=== PATIENT | male | born 1960 | race Caucasian/White ===

== ENCOUNTER 2017-06-24 08:18 | Emergency (ER) | payer OTHER ==
[~2017-06-24] VITALS: Ht 177.8 cm; Wt 79.4 kg
--- NOTE | ~2017-06-24 | EKG ---
[place] [address] [facility] [place] [address] ELECTROCARDIOGRAM REPORT Name: NIRAV MARTINO Room #: DEP DOMINGO Hanley#: [id number] Admission: 06/24/17 Attend Phys: Discharge: 06/24/17 Date of : 60 Report #: [id number] THIS REPORT FOR: //name// [facility] ED Test Date: 2017-06-24 Test Time: 09:08:53 Pat Name: NIRAV MARTINO Department: Room: Gender: [employer]er [employer]: [facility] [facility] : 1960 Requested By: Deuce Stafford Order Number: [id number] MD: Jarad Lock Measurements Intervals [place] Rate: 92 P: 36 IN: 130 QRS: -28 QRSD: 92 T: 58 QT: 332 QTc: 411 Interpretive Statements Sinus rhythm Borderline left axis deviation No previous ECG available for comparison Electronically Signed On 06-25-2017 8:51:53 [employer] by Jarad Lock [email or web address] <ELECTRONICALLY SIGNED> By: Jarad Lock MD, [facility] 06/25/17 [id number] Jarda Lock MD, FAC /EPI
[2017-06-24] MEDS ORDERED: BRINTELLIX10 MG PO (08:33)
[2017-06-24 08:35] LABS: HEMATOCRIT 44.6 % (42.0-52.0); HEMOGLOBIN 15.2 gm/dL (14.0-18.0); MCH 32.4 pg (26.0-34.0); MCHC 34.1 g/dL (28.0-37.0); MCV 94.9 fL (80.0-100.0); RBC 4.7 mil/uL (4.50-6.00); RDW 14.2 % (10.5-14.5); WBC 6.1 thou/uL (4.0-11.0)
[2017-06-24 08:44] LABS: ANION GAP 10 mmol/L (7-16); BUN 20 mg/dL (7-18); CALCIUM 8.9 mg/dL (8.5-10.1); CHLORIDE 104 mmol/L (98-107); CO2 25 mmol/L (21-32); GLUCOSE 140 mg/dL (74-106); POTASSIUM 3.7 mmol/L (3.5-5.1); SODIUM 139 mmol/L (136-145)
[2017-06-24 08:52] LABS: TROPONIN-I < 0.04 ng/mL (<0.06)
== END 2017-06-24 10:56 | disposition home or self-care (01) ==
LOC: EDBD 08:18 → ER 08:18
PROVIDERS: Emergency Medicine
DX: R42 Dizziness and giddiness (principal); Z87.01 Personal history of pneumonia (recurrent); Z77.22 Contact with and (suspected) exposure to environmental tobacco smoke (acute) (chronic)